=== PATIENT | female | born 2005 | race Caucasian/White ===

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

== ENCOUNTER 2025-01-15 11:00 | Emergency (ER) | payer MEDICAID ==
[~2025-01-15 11:00] MED LIST: PRAZ1CAP5 PO; VENL-191 PO
== END 2025-01-15 11:15 | disposition left against medical advice (07) ==
LOC: ER 11:01
DX: Z76.0 Encounter for issue of repeat prescription (principal); Z53.21 Procedure and treatment not carried out due to patient leaving prior to being seen by health care provider; Z88.8 Allergy status to other drugs, medicaments and biological substances

== ENCOUNTER 2025-01-18 20:52 | Emergency (ER) | payer MEDICAID ==
[~2025-01-18] VITALS: Ht 172.7 cm; Wt 60.0 kg
== END 2025-01-18 21:01 | disposition left against medical advice (07) ==
LOC: ER 20:53
DX: F41.9 Anxiety disorder, unspecified (principal); R11.0 Nausea; Z53.21 Procedure and treatment not carried out due to patient leaving prior to being seen by health care provider; Z88.8 Allergy status to other drugs, medicaments and biological substances
CPT/HCPCS: 99281

== ENCOUNTER 2025-01-20 02:15 | Emergency (ER) | payer MEDICAID ==
[~2025-01-20] VITALS: Ht 175.3 cm; Wt 75.0 kg
[2025-01-20] MEDS: HYDROcodone/acetaminophen 5mg/325mg tablet PO ONE (04:02)
[2025-01-20] MEDS: amox tr/potassium clavulanate 875/125mg TAB PO ONE (04:02)
--- NOTE | 2025-01-20 04:09 | Physician Documentation ---
HPI ~ General Chief Complaint: Tooth Problem Stated Complaint: TOOTHACHE Time Seen by MD: 04:06 OK to notify your PCP?: Yes Source: patient, family, RN/MD, RN notes reviewed, old records Mode of Arrival: POV Exam Limitations: no limitations History of Present Illness HPI Comment This pleasant female has been having episodes of dental pain has not seen his dentist. She was on antibiotics prior ran out now her pain is returning once again. She complains of left lower dental pain states there is a hole but no drainage in the tooth. She thinks it needs to be pulled it is very painful she is having trouble sleeping she is now here for evaluation she has denying any fevers or chills she is otherwise in good health has no other complaints at this time. Medication Reconciliation Allergies: Coded Allergies: coconut (Verified Allergy, Unknown, 06/11/24) lurasidone (Verified Allergy, Unknown, 06/11/24) Scheduled Amox Tr/Potassium Clavulanate 875/125 MG (Augmentin 875/125 MG), 1 TAB PO Q12H Prazosin Hcl (Prazosin Hcl), 1 MG PO HS Venlafaxine Hcl* (Effexor*), 75 MG PO DAILY Past Medical History Past Medical History: No Pertinent History Past Surgical History: no surgical history Alcohol Use: None Drug Use: marijuana Review of Systems All Other Systems at this time: Reviewed and Negative Physical Exam Vital Signs: RN Vital Signs have been reviewed: Yes, Temperature: 98.0, Heart Rate: 101, Respiratory Rate: 20, BP: 136/101, Pulse Oximetry: 99, Weight: 75.000 Oxygen Flow Rate: 0 Physical Exam General: The patient is well developed, well nourished, nontoxic appearing and is in no acute distress. Skin: [place], warm and dry with no rashes. HEENT: Head was normocephalic and atraumatic. Eyes - pupils equal, round, reactive to light and accommodation. Extraocular movements were intact. Conjunctivae were nonicteric. The mouth and oropharynx were clear with moist mucous membranes. There were no pharyngeal exudates or erythema. Dental: Left lower molar appears carious, as gumline within normal limits no fluctuance or abscess. Tender to palpation Neck: Supple and nontender. Chest: Clear to auscultation bilaterally without wheezes, rales or rhonchi. Heart: Rate regular and rhythmic. S1, S2. No murmurs. Abdomen: Soft, nontender and nondistended. Positive bowel sounds. No guarding or rebound. Extremities: No cyanosis, clubbing or edema. The patient moves all extremities. Neurologic: Motor sensory grossly intact Psychologic: The patient was oriented to person, place and time. The patient demonstrated appropriate judgement and insight. Progress Results/Orders Reviewed/noted all lab results: Yes Results/Orders Completed Orders - ALEXANDRA HOWARD MD Amox Tr/Potassium Clavulanate (Augmentin (01/20/25 03:55) Hydrocodone/Apap 5/325mg Tab ([place] 5/32 (01/20/25 03:55) Medications Received in ER Medications (Trade) Dose Ordered Sig/Blanca Route PRN Reason Start Time Stop Time Status Last Admin Dose Admin (Augmentin 875-125mg tablet) 1 tab ONCE ONCE PO 01/20/25 03:55 01/20/25 03:57 DC 01/20/25 04:02 1 TAB ([place] 5/325mg tablet) 1 tab ONCE ONCE PO 01/20/25 03:55 01/20/25 03:57 DC 01/20/25 04:02 1 TAB Vital Signs 01/20/25 02:20 Temp 98.0 Pulse 101 Resp 20 B/P (MAP) 136/101 Pulse Ox 99 O2 Flow Rate 0 Re-Evaluation Re-Evaluation : Re-Evaluation: Improved Progress Patient was seen and examined. Patient is given reassurance. Patient was complaining of pain. She received pain medications antibiotics reassurance and discharged home she received [place] 5 mg as well as amoxicillin. Prescription fo r amoxicillin was then sent and we discussed options for dentist for her to get dental care. She was then discharged home to follow up with her physician as needed. Medical Decision Making Additional info obtained from: old records Differential Dx:Considerations: Include: Alveolar fracture, Alveolar osteitis, Facial Cellulitis, Periapical abscess, Peridontal abscess, Post-extraction bleeding, Pulpitis, Tooth avulsion, Tooth eruption, Tooth Fracture, Tooth subluxation, Other Departure Disposition: HOME / SELF CARE / HOMELESS Impression: Primary Impression: Dental caries Additional Impression: Toothache Condition: Stable Discharge Instructions: Dental Caries, Adult Referrals: NO PRIMARY CARE PROVIDER (PCP) Prescriptions Amox Tr/Potassium Clavulanate 875/125 MG (Augmentin 875/125 MG) 875 Mg-125 Mg Tablet 1 TAB PO Q12H for 14 Days, #28 TAB Prov: ALEXANDRA HOWARD MD 01/20/25 Education Educated: Patient Educated regarding: diagnosis, need for follow up, other Signature Scribe Signature: No scribed Attestation: The note accurately reflects work and decisions made by me.Alexandra Howard MD 01/20/25 04:09 ALEXANDRA HOWARD MD Jan 20, 2025 04:09
[2025-01-20] MEDS ORDERED: AMOX-580 PO (04:17)
[2025-01-20] MEDS: ondansetron 4mg rapidly disintigrating tab PO ONE (04:24)
[2025-01-20 04:29] VITALS: BP 130/92; PULSE 90; RESP 18; TEMP 98.6; O2SAT 99
== END 2025-01-20 04:30 | disposition home or self-care (01) ==
LOC: ER 02:16
DX: K02.9 Dental caries, unspecified (principal); Z91.018 Allergy to other foods
CPT/HCPCS: 99284

== ENCOUNTER 2025-02-01 21:44 | Emergency (ER) | payer MEDICAID ==
[~2025-02-01] VITALS: Ht 175.3 cm; Wt 70.0 kg
[~2025-02-01 21:44] MED LIST changes: +AMOX-580 PO
[2025-02-01 21:50] VITALS: BP 130/87; PULSE 86; RESP 18; TEMP 99; O2SAT 99
== END 2025-02-01 23:58 | disposition left against medical advice (07) ==
LOC: ER 21:45
DX: T78.40XA Allergy, unspecified, initial encounter (principal); Z88.8 Allergy status to other drugs, medicaments and biological substances; X58.XXXA Exposure to other specified factors, initial encounter
CPT/HCPCS: 99281

== ENCOUNTER 2025-02-20 03:52 | Emergency (ER) | payer MEDICAID, OTHER ==
[~2025-02-20] VITALS: Ht 175.3 cm; Wt 63.6 kg
[~2025-02-20 03:52] MED LIST changes: -AMOX-580 PO
[2025-02-20 03:54] VITALS: BP 135/85; PULSE 95; RESP 22; TEMP 98.4; O2SAT 98
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
[2025-02-20] MEDS: ibuprofen tablet 400 MG TABLET PO ONE (04:27)
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
[2025-02-20] MEDS ORDERED: CEPH-585 PO (04:46)
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
== END 2025-02-20 04:52 | disposition home or self-care (01) ==
LOC: ER 03:53
DX: S60.041A Contusion of right ring finger without damage to nail, initial encounter (principal); L03.011 Cellulitis of right finger; F12.90 Cannabis use, unspecified, uncomplicated; Z91.018 Allergy to other foods; Z88.8 Allergy status to other drugs, medicaments and biological substances; Y04.8XXA Assault by other bodily force, initial encounter; Y93.89 Activity, other specified; Y92.89 Other specified places as the place of occurrence of the external cause; Y99.8 Other external cause status
CPT/HCPCS: 70450; 73130; 99284